=== PATIENT | male | born 1960 | race Caucasian/White ===

== ENCOUNTER 2017-04-07 05:27 | Emergency (ER) | payer OTHER ==
[~2017-04-07] VITALS: Ht 193 cm; Wt 157.8 kg
[~2017-04-07 05:27] MED LIST: Augmentin PO; Colace PO; Fish Oil PO; GLUCOPHAGE500 MG PO; Miralax, Glycolax PO; Ocuvite PO; PRINIVIL10 MG PO; Percocet 5/325,Endoc PO; Theragran PO
[2017-04-07] MEDS ORDERED: PROAIR HFA8.5 GM IH (07:58)
[2017-04-07] MEDS ORDERED: ZITHROMAX Z-PA250 MG PO (07:58)
[2017-04-07 08:25] VITALS: BP 113/74
== END 2017-04-07 08:27 | disposition home or self-care (01) ==
LOC: EME 05:27
DX: J20.9 Acute bronchitis, unspecified (principal); R73.03 Prediabetes; Z79.84 Long term (current) use of oral hypoglycemic drugs; I10 Essential (primary) hypertension; Z72.0 Tobacco use
CPT/HCPCS: 71020; 94640; 99281; 99283

== ENCOUNTER → 2017-04-18 | Outpatient (CLI) | payer OTHER ==
[~2017-04-18] MED LIST changes: +PROAIR HFA8.5 GM IH; +ZITHROMAX Z-PA250 MG PO
== END | disposition home or self-care (01) ==
LOC: CDC 14:53
DX: I10 Essential (primary) hypertension (principal); M25.561 Pain in right knee; M17.11 Unilateral primary osteoarthritis, right knee; R94.31 Abnormal electrocardiogram [ECG] [EKG]
CPT/HCPCS: 93000

== ENCOUNTER → 2017-07-18 | Outpatient (CLI) | payer OTHER | END | disposition home or self-care (01) | LOC: RES 06-17 08:00 | DX: J98.4 Other disorders of lung (principal); R94.2 Abnormal results of pulmonary function studies | CPT/HCPCS: 94060; 94726; 94729 ==

== ENCOUNTER 2017-12-31 07:01 | Emergency (ER) | payer OTHER ==
[~2017-12-31] VITALS: Ht 190.5 cm; Wt 163.5 kg
[2017-12-31] MEDS ORDERED: NORCO 5/3251 TABLET PO (07:30)
[2017-12-31 07:55] LABS: HEMATOCRIT 39.5 % (38.0-50.0); HEMOGLOBIN 13.6 G/DL (12.5-16.6); MCH 31.6 PG (29.0-34.0); MCHC 34.4 G/DL (30.0-36.0); MCV 91.9 FL (86-99); PLATELET COUNT 180 K/uL (156-360); RBC DIS.WIDTH-CV 12.4 % (11.8-14.6); RBC DIS.WIDTH-SD 41.1 % (39-53); WHITE BLOOD COUNT 6.1 K/uL (4.1-10.2)
[2017-12-31 08:03] LABS: CHLORIDE 108 mEq/L (99-109); SODIUM 144 mEq/L (136-147)
[2017-12-31 08:05] LABS: GLUCOSE 174 mg/dL (70-99); TOTAL PROTEIN 6.8 g/dL (6.4-8.3)
[2017-12-31 08:07] LABS: TOTAL BILIRUBIN 0.9 mg/dL (0.0-1.0)
[2017-12-31 08:09] LABS: ALKALINE PHOSPHATASE 53 IU/L (3-129); CREATININE 1.5 mg/dL (0.6-1.3); GFR ESTIMATE (CALCULATED) 52 mL/min/ (58.99-99999)
[2017-12-31 08:10] LABS: UREA NITROGEN (BUN) 21 mg/dL (9-23)
[2017-12-31 08:11] LABS: AST (GOT) 42 IU/L (2-34)
[2017-12-31 08:12] LABS: ALT (GPT) 51 IU/L (3-49)
[2017-12-31 08:37] VITALS: BP 129/85
== END 2017-12-31 08:39 | disposition home or self-care (01) ==
LOC: EME 07:01
PROVIDERS: Emergency Medicine Emergency Medical Services
DX: N20.0 Calculus of kidney (principal); E11.9 Type 2 diabetes mellitus without complications; I10 Essential (primary) hypertension; J44.9 Chronic obstructive pulmonary disease, unspecified; F41.9 Anxiety disorder, unspecified; Z90.49 Acquired absence of other specified parts of digestive tract; Z87.891 Personal history of nicotine dependence; Z79.84 Long term (current) use of oral hypoglycemic drugs
CPT/HCPCS: 74176; 80053; 81003; 85027; 99281; 99284; J2270

== ENCOUNTER 2018-05-14 17:08 | Emergency (ER) | payer OTHER ==
[~2018-05-14] VITALS: Ht 190.5 cm; Wt 161.0 kg
[~2018-05-14 17:08] MED LIST changes: +NORCO 5/3251 TABLET PO
[2018-05-14 17:29] LABS: HEMATOCRIT 40.2 % (38.0-50.0); HEMOGLOBIN 14.5 G/DL (12.5-16.6); MCH 32.4 PG (29.0-34.0); MCHC 36.1 G/DL (30.0-36.0); MCV 89.9 FL (86-99); PLATELET COUNT 194 K/uL (156-360); RBC DIS.WIDTH-SD 39.2 % (39-53); RED BLOOD COUNT 4.47 M/uL (4.00-5.50); WHITE BLOOD COUNT 10.6 K/uL (4.1-10.2)
[2018-05-14 17:37] LABS: ALBUMIN 4.2 g/dL (3.2-4.8); CHLORIDE 107 mEq/L (99-109); POTASSIUM 4.6 mEq/L (3.7-5.4); SODIUM 142 mEq/L (136-147)
[2018-05-14 17:39] LABS: GLUCOSE 184 mg/dL (70-99)
[2018-05-14 17:41] LABS: TOTAL BILIRUBIN 0.5 mg/dL (0.0-1.0)
[2018-05-14 17:43] LABS: ALKALINE PHOSPHATASE 67 IU/L (3-129); CREATININE 1.2 mg/dL (0.6-1.3); GFR ESTIMATE (CALCULATED) > 59 mL/min/ (58.99-99999)
[2018-05-14 17:44] LABS: UREA NITROGEN (BUN) 20 mg/dL (9-23)
[2018-05-14 17:45] LABS: AST (GOT) 37 IU/L (2-34)
[2018-05-14 17:46] LABS: ALT (GPT) 53 IU/L (3-49); LIPASE 30 U/L (1.0-51.0)
[2018-05-14] MEDS ORDERED: FLOMAX0.4 MG PO (19:26)
[2018-05-14] MEDS ORDERED: TORADOL10 MG PO (19:26)
[2018-05-14] MEDS ORDERED: PERCOCET 5/31 TABLET PO (19:26)
[2018-05-14] MEDS ORDERED: ZOFRAN ODT4 MG PO (19:26)
[2018-05-14 19:43] VITALS: BP 128/79
[2018-05-16] MEDS ORDERED: LIPITOR10 MG PO (12:58)
[2018-05-16] MEDS ORDERED: FENOGLIDE40 MG PO (12:59)
[2018-05-16] MEDS ORDERED: OSTEO BI-FLEX1 EAC2 PO (13:00)
== END 2018-05-14 19:43 | disposition home or self-care (01) ==
LOC: EME 17:08 → RME 17:08
PROVIDERS: Nurse Practitioner Family
DX: N20.1 Calculus of ureter (principal); R10.30 Lower abdominal pain, unspecified; R11.0 Nausea; K76.0 Fatty (change of) liver, not elsewhere classified; N28.1 Cyst of kidney, acquired; K57.30 Diverticulosis of large intestine without perforation or abscess without bleeding; I10 Essential (primary) hypertension; E11.9 Type 2 diabetes mellitus without complications; Z87.891 Personal history of nicotine dependence; Z90.49 Acquired absence of other specified parts of digestive tract; Z79.84 Long term (current) use of oral hypoglycemic drugs
CPT/HCPCS: 74177; 80053; 83690; 85027; 99281; 99285; J1885; J2405; J3010; J7030

== ENCOUNTER 2018-05-18 08:20 | Day surgery (SDC) | payer OTHER ==
[~2018-05-18] VITALS: Ht 193 cm; Wt 158.7 kg
[~2018-05-18 08:20] MED LIST changes: +FENOGLIDE40 MG PO; +FLOMAX0.4 MG PO; +LIPITOR10 MG PO; +OSTEO BI-FLEX1 EAC2 PO; +PERCOCET 5/31 TABLET PO; +TORADOL10 MG PO; +ZOFRAN ODT4 MG PO
[2018-05-18 09:00] VITALS: BP 119/73
[2018-05-18 12:49] VITALS: BP 137/88
[2018-05-18 13:51] VITALS: BP 119/75
== END 2018-05-18 13:57 | disposition home or self-care (01) ==
LOC: SDC 08:20
PROVIDERS: Urology
DX: N20.1 Calculus of ureter (principal); Z87.442 Personal history of urinary calculi; E78.5 Hyperlipidemia, unspecified; H40.9 Unspecified glaucoma; Z87.891 Personal history of nicotine dependence; Z68.41 Body mass index [BMI] 40.0-44.9, adult
CPT/HCPCS: 82365 90; 93005; C1758; C2625; J0330; J0690; J2250; J2405; J3010